=== PATIENT | male | born 1940 | race Caucasian/White ===

== ENCOUNTER → 2017-03-16 09:16 | Outpatient (CLI) | payer BC | END | disposition home or self-care (01) | LOC: D.CT 09:16 | DX: J98.4 Other disorders of lung (principal) ==

== ENCOUNTER → 2017-05-05 12:10 | Outpatient (CLI) | payer BC ==
[2014-09-26 07:29] VITALS: BMI 22.0
[~2017-05-05 12:10] MED LIST: AVAPRO150 MG PO; BAYER CHEWABLE81 MG PO; CYCLOBENZAPRINE10 MG PO; PRAVACHOL20 MG PO; ZIAC 5-6.25 MG1 TAB PO
== END | disposition home or self-care (01) ==
LOC: D.US 12:10
DX: I65.23 Occlusion and stenosis of bilateral carotid arteries (principal)

== ENCOUNTER → 2017-06-24 14:08 | Outpatient (CLI) | payer BC ==
[2014-09-26 07:29] VITALS: BMI 22.0
== END | disposition home or self-care (01) ==
LOC: D.CT 13:00
DX: R31.29 Other microscopic hematuria (principal)

== ENCOUNTER → 2018-03-15 09:00 | Outpatient (CLI) | payer BC ==
[2014-09-26 07:29] VITALS: BMI 22.0
== END | disposition home or self-care (01) ==
LOC: D.RAD 09:00
DX: R91.8 Other nonspecific abnormal finding of lung field (principal)

== ENCOUNTER → 2018-06-11 08:36 | Outpatient (CLI) | payer BC ==
[2014-09-26 07:29] VITALS: BMI 22.0
== END | disposition home or self-care (01) ==
LOC: D.ECHO 06-10 09:00
DX: I35.1 Nonrheumatic aortic (valve) insufficiency (principal)

== ENCOUNTER → 2018-09-07 13:14 | Outpatient (CLI) | payer BC, MEDICARE ==
[2014-09-26 07:29] VITALS: BMI 22.0
== END | disposition home or self-care (01) ==
LOC: D.CT 13:14
PROVIDERS: ATTEND Internal Medicine Gastroenterology
DX: R10.9 Unspecified abdominal pain (principal)

== ENCOUNTER → 2019-08-23 07:42 | Outpatient (CLI) | payer BC, MEDICARE ==
[2014-09-26 07:29] VITALS: BMI 22.0
== END | disposition home or self-care (01) ==
LOC: D.CT 03-18 09:00
PROVIDERS: ATTEND Internal Medicine Pulmonary Disease
DX: R91.8 Other nonspecific abnormal finding of lung field (principal)